=== PATIENT | male | born 1980 | race Caucasian/White ===

== ENCOUNTER 2019-11-01 22:16 | Emergency (ER) | payer SELFPAY ==
[~2019-11-01] VITALS: Ht 185.4 cm; Wt 79.4 kg
--- NOTE | 2019-11-01 22:17 | NUR ---
ED Nurse Note: Pt BIBA for ETOH intoxiction, pt aao x 4, steady gait, VSS, no s/s of distress noted. ERMD at bedside
[2019-11-01 22:24] VITALS: BP 124/70
--- NOTE | 2019-11-01 22:25 | NUR ---
ED Nurse Note: Pt offered food and clothing but pt refused clothing. ERMD aware.
--- NOTE | 2019-11-01 22:42 | Emergency Room Report ---
History of Present Illness General Chief Complaint: Alcohol Intoxication Source: Patient Present Illness HPI Disclaimer: Please note that this report is being documented using DRAGON technology. This can lead to erroneous entry secondary to incorrect interpretation by the dictating instrument. HPI: 39-year-old male brought in for evaluation of alcohol intoxication. He arrives by EMS after being found on the ground. The patient denies drinking alcohol, using drugs, sustaining any injuries or having any complaints at this time. He states that he was laying on the ground because he is homeless and he was just trying to get some sleep. He denies any complaints of headache, visual changes, neck or back pain, chest pain, shortness of breath, nausea, vomiting, diarrhea. He smokes cigarettes but denies any alcohol or drug use ever. He would like to be discharged. PMH: Denies PSH: Denies Allergies: Denies Social Hx: Tobacco use, denies drug or alcohol use Allergies: Coded Allergies: No Known Allergies (Unverified , 11/01/19) Nursing Documentation-PMH Past Medical History: No Stated History Review of Systems All Other Systems: negative except mentioned in HPI Physical Exam Vital Signs Date Time Temp Pulse Resp B/P (MAP) Pulse Ox O2 Delivery O2 Flow Rate FiO2 11/01/19 22:14 98.1 82 20 124/70 (88) 98 Room Air General: Awake and alert, no acute distress HEENT: NC/AT. EOMI. pupils are 5 mm and reactive bilaterally. Anicteric sclera. No scleral injection. Cardiovascular: RRR. S1 and S2 normal. No murmur appreciated Resp: Normal work of breathing. No cough, wheezing or crackles appreciated Abdomen: Abdomen is soft, nondistended. Nontender Skin: Intact. No abrasions, laceration. Sunburned over his torso face and upper extremities MSK: Normal tone and bulk. Moving all extremities. No obvious deformity. Neuro: Awake and alert. Mentating appropriately though speech is dysarthric. Thought is somewhat tangential. Medical Decision Making Diagnostic Impression: Primary Impression: Acute alcoholic intoxication Additional Impression: Eloped from emergency department ER Course There is a 39-year-old male brought in for evaluation of alcohol intoxication. With the patient denies he does appear to have signs of minor alcohol intoxication. He is awake, coherent though slightly dysarthric. He is walking with a steady gait to the laboratory. He is in no acute distress and arrives with stable vital signs otherwise. Do not believe he requires emergent labs or imaging. Will metabolize in the emergency department and give him something to eat and drink. Once he is clinically sober he may be discharged. If his condition does not improve or suddenly deteriorates can advance work-up as needed. Reevaluation Time: 22:58 Last Vital Signs Date Time Temp Pulse Resp B/P (MAP) Pulse Ox O2 Delivery O2 Flow Rate FiO2 11/01/19 22:14 98.1 82 20 124/70 (88) 98 Room Air Reevaluation Impression Informed by nursing staff that the patient ran out of the emergency department and eloped. Disposition: ELOPED Condition: Stable Pacheco Wylie MD Nov 01, 2019 22:42
[2019-11-01 22:54] VITALS: BP 124/70
--- NOTE | 2019-11-01 22:54 | NUR ---
ELOPEMENT: Pt eloped from facility against medical advice of MD. Pt able to provide self care and navigate community. PT has steady gait. ERMD aware.
== END 2019-11-01 22:54 | disposition left against medical advice (07) ==
LOC: EDBD 22:16 → EMR 22:24
DX: F10.129 Alcohol abuse with intoxication, unspecified (principal)
CPT/HCPCS: 99281